=== PATIENT | male | born 1950 | race Caucasian/White ===

== ENCOUNTER → 2016-10-30 | Outpatient (CLI) | payer OTHER ==
--- NOTE | 2016-10-30 10:21 | RAD ---
Cervical spine, 3 views, 10/30/2016: History: Neck pain, arm tingling There is moderate disc space narrowing and marginal spurring at all disc levels from C3-4 down through C6-7. There are moderate hypertrophic degenerative changes involving multiple facet joints bilaterally. No fracture or dislocation is identified. No prevertebral soft tissue swelling is seen. There is calcific plaquing at the right carotid bifurcation. IMPRESSION: 1. Moderate multilevel hypertrophic degenerative change. 2. No acute bony abnormality is detected.
== END | disposition home or self-care (01) ==
LOC: DXRADRC 10:06
PROVIDERS: ATTEND Physician Assistant Medical
DX: M47.892 Other spondylosis, cervical region (principal); R20.0 Anesthesia of skin
CPT/HCPCS: 72040

== ENCOUNTER → 2018-04-01 | Day surgery (SDC) | payer MEDICARE, OTHER ==
[~2018-04-01] MED LIST: ALBUTEROL SULFATE 2.5 MG/3 ML NEBU. NEB PRN; ATOR10TA60 PO; ATROPINE 0.5 MG/5 ML DISP.SYRIN. IV PRN; CELE200C PO; CYCL-331 PO; IV RINGERS SOLUTION,LACTATED 1,000 ML IV SCH; LEVO100T5 PO; LIDOCAINE 2% PF Vial for OR 5 ML VIAL. ONE; METF10007 PO; NALOXONE 0.4 MG/ML VIAL. IV PRN; ONDANSETRON PF 4 MG/2 ML VIAL. IV PRN; PROPOFOL 10,000 MCG/ML (20ML) VIAL IV ONE; PROPOFOL 20 ML IV ONE; SILD100T PO; TAMS0.4C97 PO; ZOLP10TA PO; diphenhydrAMINE 50 MG/ML VIAL IV PRN
[2018-04-01 14:15] VITALS: BP 114/64
== END | disposition home or self-care (01) ==
LOC: SURG 12:48
PROVIDERS: ATTEND Internal Medicine Gastroenterology
DX: Z12.11 Encounter for screening for malignant neoplasm of colon (principal); Z86.010 Personal history of colon polyps; K57.30 Diverticulosis of large intestine without perforation or abscess without bleeding; K55.20 Angiodysplasia of colon without hemorrhage; Z98.52 Vasectomy status; Z98.890 Other specified postprocedural states; J44.9 Chronic obstructive pulmonary disease, unspecified; E11.9 Type 2 diabetes mellitus without complications; E03.9 Hypothyroidism, unspecified; N40.0 Benign prostatic hyperplasia without lower urinary tract symptoms; F32.9 Major depressive disorder, single episode, unspecified; F41.9 Anxiety disorder, unspecified; Z88.0 Allergy status to penicillin; Z80.0 Family history of malignant neoplasm of digestive organs; Z72.0 Tobacco use; Z79.84 Long term (current) use of oral hypoglycemic drugs; Z79.899 Other long term (current) drug therapy
CPT/HCPCS: G0105; J2704; J7120; J2001

== ENCOUNTER → 2019-03-06 | Outpatient (CLI) | payer MEDICARE, OTHER ==
[2018-04-01 14:15] VITALS: BP 114/64
[~2019-03-06] MED LIST changes: -ALBUTEROL SULFATE 2.5 MG/3 ML NEBU. NEB PRN; -ATROPINE 0.5 MG/5 ML DISP.SYRIN. IV PRN; +IOHEXOL 350 MG/ML 100 ML VIAL. IV ONE; -IV RINGERS SOLUTION,LACTATED 1,000 ML IV SCH; -LIDOCAINE 2% PF Vial for OR 5 ML VIAL. ONE; -NALOXONE 0.4 MG/ML VIAL. IV PRN; -ONDANSETRON PF 4 MG/2 ML VIAL. IV PRN; -PROPOFOL 10,000 MCG/ML (20ML) VIAL IV ONE; -PROPOFOL 20 ML IV ONE; -diphenhydrAMINE 50 MG/ML VIAL IV PRN
[2019-03-06 09:07] LABS: GFR 74.8
--- NOTE | 2019-03-06 10:51 | RAD ---
EXAM: CT Pulmonary Angiogram INDICATION: Left chest pain, palpitations and shortness of air. TECHNIQUE: Multi-detector row images were acquired from the thoracic inlet through the upper abdomen with the use of IV contrast. Sagittal and coronal images were acquired from the transaxial data. MIP images of the pulmonary arteries were obtained. All CT scans performed at this facility utilize dose optimization techniques as appropriate to the exam, including the following: Automated exposure control and adjustment of the mA and/or KV according to patient size (this includes techniques or standardized protocols for targeted exams where dose is indication/reason for exam). IV CONTRAST: Administered DLP 321 mGycm COMPARISON: None FINDINGS: PULMONARY ARTERIES: No pulmonary emboli are identified. CARDIOVASCULAR: Trace pericardial effusion. There is minimal air in the pulmonary arteries. Normal heart size. Coronary artery calcifications. Aorta is normal caliber. MEDIASTINUM & ANA: No adenopathy or masses. Calcified left hilar nodes. LUNGS: No pulmonary infiltrate, nodule, or other focal abnormality. PLEURAL SPACE: No pleural effusions or pneumothorax. OSSEOUS & SOFT TISSUE: Bones are unremarkable. There is a fat-containing right Bochdalek hernia. Cholelithiasis in the gallbladder neck is also noted along with nonspecific mild diffuse gastric wall thickening in the setting of under distention. There are 2 hypodense lesions in the left hepatic lobe is less than a centimeter in size incompletely characterized without IV contrast specifically likely to be cysts. ABDOMEN: The visualized portions of the upper abdomen are unremarkable. IMPRESSION: 1. No pulmonary emboli. 2. No acute cardiopulmonary process clearly shown. 3. Minimal air in the pulmonary arteries could relate to vascular contrast administration. Electronically signed by: Alicia Cowan MD (03/06/2019 10:48 AM) [facility]
== END | disposition home or self-care (01) ==
LOC: CT 08:34
PROVIDERS: ATTEND Physician Assistant Medical
DX: K80.20 Calculus of gallbladder without cholecystitis without obstruction (principal); I25.10 Atherosclerotic heart disease of native coronary artery without angina pectoris; I89.8 Other specified noninfective disorders of lymphatic vessels and lymph nodes; J44.9 Chronic obstructive pulmonary disease, unspecified
CPT/HCPCS: 36415; 71275; 82565; 84520; Q9967